=== PATIENT | female | born 1950 | race Caucasian/White ===

== ENCOUNTER 2017-02-03 12:59 | Emergency (ER) | payer MEDICARE, OTHER ==
[2017-02-03 13:31] LABS: BASOPHILS % (AUTO) 0.4 %; EOSINOPHILS % (AUTO) 0.3 %; HCT - HEMATOCRIT 40.6 % (37.0-47.0); HGB - HEMOGLOBIN 13.5 g/dL (12.0-16.0); LYMPHOCYTES # (AUTO) 1.6 10^3/uL (1.5-3.5); LYMPHOCYTES % (AUTO) 17.5 %; MEAN CORPUSCULAR HGB CONC 33.2 g/dL (32.0-36.0); MEAN CORPUSCULAR VOLUME 90.3 fL (81.0-99.0); MEAN PLATELET VOLUME 7.1 fL (7.9-10.8); MONOCYTES # (AUTO) 0.6 10^3/uL (0.0-1.0); MONOCYTES % (AUTO) 6.4 %; NEUTROPHILS # (AUTO) 6.9 10^3/uL (1.5-6.6); NEUTROPHILS % (AUTO) 75.4 %; RED BLOOD COUNT 4.49 10^6/uL (4.20-5.40); RED CELL DISTRIBUTION WIDTH 13.8 % (12.0-15.0); UNCORRECTED WHITE BLOOD COUNT 9.2 x10^3/uL; WHITE BLOOD COUNT 9.2 x10^3/uL (4.8-10.8)
[2017-02-03 13:48] LABS: ALBUMIN/GLOBULIN RATIO 1.4 (1.0-2.2); BILIRUBIN,TOTAL 0.9 mg/dL (0.2-1.0); CALCIUM 9.7 mg/dL (8.5-10.3); POTASSIUM 3.6 mmol/L (3.5-5.0); TOTAL PROTEIN 7.6 g/dL (6.7-8.2)
[2017-02-03] MEDS ORDERED: SODIUM CHLORIDE 0.9% 1,000 ML IV ONE ×2 (16:32)
--- NOTE | 2017-02-03 16:34 | ED Physician Documentation ---
PD HPI ABD PAIN - Stated complaint Stated Complaint: ABD PX - Chief complaint Chief Complaint: Abd Pain - History obtained from History obtained from: Patient, Family - History of Present Illness Timing - onset: How many days ago (3) Timing - duration: Days (3) Timing - details: Gradual onset Pain level max: 7 Pain level now: 5 Quality: Cramping, Aching, Pain Location: RLQ, Suprapubic, LLQ Radiation: Other (nonradiating) Improved by: BM (diarrhea) Worsened by: Eating Associated symptoms: Diarrhea (10-12 times per day.). No: Fever, Nausea, Vomiting, Constipation Similar symptoms before: Diagnosis (diarrhea) - Additional information Additional information: no recent travel. no recent abx. states diarrhea q 10 mins today. Review of Systems Nose: denies: Rhinorrhea / runny nose, Congestion Cardiac: denies: Chest pain / pressure Respiratory: denies: Cough GI: reports: Abdominal Pain (cramping), Diarrhea. denies: Nausea, Vomiting, Hematemesis, Bloody / black stool Skin: denies: Rash Musculoskeletal: denies: Neck pain, Back pain Neurologic: denies: Headache PD PAST MEDICAL HISTORY - Past Medical History Past Medical History: Yes GI: Diverticulitis - Past Surgical History Past Surgical History: Yes Ortho: Carpal Tunnel surgery - Present Medications Home Medications: Ambulatory Orders Medication Instructions Recorded Confirmed Hydrochlorothiazide 12.5 mg PO DAILY 02/03/17 02/03/17 Pravastatin [Pravachol] 20 mg PO DAILY 02/03/17 02/03/17 - Allergies Allergies/Adverse Reactions: Allergies Allergy/AdvReac Type Severity Reaction Status Date / Time No Known Drug Allergies Allergy Verified 02/03/17 13:05 - Social History Does the pt smoke?: No Smoking Status: Never smoker Does the pt drink ETOH?: No Does the pt have substance abuse?: No - Immunizations Immunizations are current?: Yes - POLST Patient has POLST: No PD ED PE NORMAL - Vitals Vital signs reviewed: Yes - General General: Alert and oriented X 3, No acute distress - HEENT HEENT: Moist mucous membranes - Neck Neck: Supple, no meningeal sign - Cardiac Cardiac: RRR - Respiratory Respiratory: No respiratory distress, Clear bilaterally - Abdomen Abdomen: Soft, Non distended, Other (Mild diffuse tenderness to palpation without peritoneal signs.) - Back Back: No CVA TTP, No spinal TTP - Derm Derm: Warm and dry, No rash - Extremities Extremities: No edema - Neuro Neuro: Alert and oriented X 3 - Psych Psych: Normal mood, Normal affect Results - Vitals Vitals: Vital Signs - 24 hr 02/03/17 02/03/17 02/03/17 13:03 17:42 19:03 Temperature 37.4 C Heart Rate 60 66 65 Respiratory 20 16 16 Rate Blood Pressure 136/80 H 161/74 H 145/73 H O2 Saturation 100 98 100 Oxygen O2 Source Room air - EKG (time done) 1639 Rate: Rate (enter#) (63) Rhythm: NSR [place]: Normal Intervals: Normal CA QRS: Normal Ischemia: Normal ST segments Computer interpretation: Agree with computer - Labs Labs: Laboratory Tests 02/03/17 02/03/17 02/03/17 13:20 13:20 17:40 WBC 9.2 RBC 4.49 Hgb 13.5 Hct 40.6 MCV 90.3 MCH 30.0 MCHC 33.2 RDW 13.8 Plt Count 275 MPV 7.1 L Neut # 6.9 H Lymph # 1.6 [place] # 0.6 Eos # 0.0 Baso # 0.0 Absolute Nucleated RBC 0.00 Nucleated RBCs 0.0 Sodium 139 Potassium 3.6 Chloride 105 Carbon Dioxide 25 Anion Gap 9.0 BUN 27 H Creatinine 1.0 Estimated GFR (MDRD) 55 L Glucose 101 H Calcium 9.7 Total Bilirubin 0.9 AST 25 ALT 20 Alkaline Phosphatase 61 Total Protein 7.6 Albumin 4.4 Globulin 3.2 Albumin/Globulin Ratio 1.4 Lipase 29 Urine Color YELLOW Urine Clarity CLEAR Urine pH 5.5 Ur Specific [place] >=1.030 H Urine Protein NEGATIVE Urine Glucose (UA) NEGATIVE Urine Ketones 15 H Urine Occult Blood SMALL H Urine Nitrite NEGATIVE Urine Bilirubin NEGATIVE Urine Urobilinogen 0.2 (NORMAL) Ur Leukocyte Esterase NEGATIVE Urine RBC 0-5 Urine WBC 0-3 Ur Squamous Epith Cells RARE Squamous Urine Bacteria Few Urine Mucus Moderate Strands Ur Microscopic Review INDICATED Urine Culture Comments NOT INDICATED - Rads (name of study) CT abdomen and pelvis Radiology: Prelim report reviewed, EMP read contemporaneously, See rad report ( 1. Mild diffuse distal colon wall thickening compatible with an enteritis, infectious versus noninfectious. . Moderate diverticulosis, fibroid uterus, and other chronic or incidental findings. ) PD MEDICAL DECISION MAKING - ED course Complexity details: reviewed results, re-evaluated patient, considered differential, d/w patient, d/w family ED course: Patient is a 66-year-old female who has had diarrhea for the past several days. Her abdominal pain resolved in the emergency department with IV fluids. Findings on CT scan consistent with enteritis. No evidence of diverticulitis. No bowel obstruction. No diarrhea in the emergency department over several hours. She is very well-appearing, nontoxic. Afebrile. Will continue supportive care and follow-up with her doctor. Patient counseled regarding signs and symptoms for which I believe and urgent re-evaluation would be necessary. Patient with good understanding of and agreement to plan and is comfortable going home at this time This document was made in part using voice recognition software. While efforts are made to proofread this document, sound alike and grammatical errors may occur. Departure - Departure Disposition: 01 Home, Self Care Clinical Impression: Enteritis Condition: Good Instructions: ED Diarrhea Viral Follow-Up: Quentin Brand MD [Primary Care Provider] - Within 1 week Comments: Drink plenty of fluids. Return if you worsen. Your blood pressure was elevated today on check in to the emergency department. This does not mean that you have hypertension, it is a common phenomenon to check into the emergency department and have elevated blood pressure. I recommend that you see your primary care physician within the week to have it rechecked when you're feeling better. Discharge Date/Time: 02/03/17 19:08
[2017-02-03] MEDS ORDERED: IOPAMIDOL-300 100 ML VIAL IVP ONE (17:27)
--- NOTE | 2017-02-03 17:47 | CT Preliminary Report ---
Exam: CT Abdomen/Pelvis W/ IMPRESSION: 1. Mild diffuse distal colon wall thickening compatible with an enteritis, infectious versus noninfec tious. 2. Moderate diverticulosis, fibroid uterus, and other chronic or incidental findings. [facility] SITE ID: [id number]
--- NOTE | 2017-02-03 17:49 | CT Report ---
EXAM: CT ABDOMEN AND PELVIS EXAM DATE: 02/03/2017 05:33 PM. CLINICAL HISTORY: Lower abd pain, diarrhea. . COMPARISONS: None. TECHNIQUE: Routine helical CT imaging was performed through the abdomen and pelvis. IV contrast: 100 cc [id number]. Enteric contrast: No. Reconstructions: Coronal and sagittal. In accordance with CT protocol optimization, one or more of the following dose reduction techniques w ere utilized for this exam: automated exposure control, adjustment of mA and/or KV based on patient s ize, or use of iterative reconstructive technique. FINDINGS: Lung Bases: Unremarkable. Liver: Small cysts or hemangiomata. Tiny surface hemangioma along the inferior right lobe. No suspici ous lesions. Gallbladder/Bile Ducts: Unremarkable. Spleen: Normal. Small accessory spleen. 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 Pancreas: Normal. Adrenal Glands: Normal. Kidneys: Normal. No masses or hydronephrosis. Peritoneal Cavity/Bowel: Moderate colonic diverticulosis. Mild diffuse thickening of colon wall invol ving the distal half of the colon, measuring about 5 mm. No dilation. No definite localized inflammat ory process. No free fluid, free air, or lymphadenopathy. Unremarkable region of appendix. Pelvic Organs: Decompressed urinary bladder. Lobulated retroverted uterus with calcifications. Otherw ise unremarkable. Vasculature: Unremarkable. No aneurysm. Bones: Mild scoliosis with degenerative changes. Other: None. IMPRESSION: 1. Mild diffuse distal colon wall thickening compatible with an enteritis, infectious versus noninfec tious. 2. Moderate diverticulosis, fibroid uterus, and other chronic or incidental findings. [facility] Referring Provider Line: [phone] SITE ID: [id number]
[2017-02-03 17:57] LABS: BILIRUBIN,URINE NEGATIVE (NEGATIVE); PH,URINE 5.5 PH (5.0-7.5)
[2017-02-03 17:59] LABS: UA w/ MICROSCOPIC CHARGE YES
[2017-02-03 18:24] LABS: UR CULTURE IF IND NOT INDICATED; WBC,URINE 0-3 /HPF (0-5)
[2017-02-03 19:04] VITALS: BP 145/73
== END 2017-02-03 19:08 | disposition home or self-care (01) ==
LOC: ED 12:59
DX: K52.9 Noninfective gastroenteritis and colitis, unspecified (principal); R03.0 Elevated blood-pressure reading, without diagnosis of hypertension
CPT/HCPCS: 36415; 74177; 80053; 81001; 83690; 85025; 93005; 96360; 99283; 99284; Q9967; 81003; 87086